=== PATIENT | male | born 1990 | race Caucasian/White ===

== ENCOUNTER 2019-09-11 08:54 | Emergency (ER) | payer BC, OTHER ==
[2019-09-11 09:08] VITALS: BP 148/96; PULSE 94; RESP 18; TEMP 98.7
[2019-09-11] MEDS ORDERED: HYDROcodone/APAP 5-325MG 1 EACH TAB PO STA (09:28)
--- NOTE | 2019-09-11 09:29 | ED ---
Lower Extremity Injury HPI - General Chief Complaint: Extremity Injury, Lower Stated Complaint: LEFT LEG INJURY, FALL DOWN 4 STAIRS Time Seen by Provider: 09/11/19 09:16 Source: patient, RN notes reviewed Mode of arrival: ambulatory Limitations: no limitations - History of Present Illness Initial Comments: This a 29-year-old male presents emergency Department chief complaint of left knee pain. Patient states that last night he was carrying some totes down the steps states that he missed a step falling down for onto a landing. This is a wooden steps. Patient states a few hours after he had swelling which is increased over nighttime. Patient states that he did have prior knee surgery from a fracture. Patient states he had screws which were removed. Patient states that the pain is on anterior surface. He denies any head injury no loss conscious. No paresthesias denies any hip pain, lower leg pain - Related Data Previous Rx's Medication Instructions Recorded Albuterol Inhaler [Ventolin Hfa 1 - 2 puff INHALATION Q6HR PRN #1 04/29/16 Inhaler] inhaler Azithromycin [Zithromax Z-pack] 250 mg PO DIRECTED #6 tab 04/29/16 Hydrocodone/Acetaminophen [[place] 1 each PO Q6HR PRN #20 tab 04/29/16 5-325] Ibuprofen [Motrin] 600 mg PO Q8HR PRN #30 tab 09/11/19 Allergies Allergy/AdvReac Type Severity Reaction Status Date / Time No Known Allergies Allergy Verified 09/11/19 09:08 Review of Systems ROS Statement: Those systems with pertinent positive or pertinent negative responses have been documented in the HPI. ROS Other: All systems not noted in ROS Statement are negative. Past Medical History Past Medical History: No Reported History History of Any Multi-Drug Resistant Organisms: None Reported Past Surgical History: Orthopedic Surgery Past Psychological History: No Psychological Hx Reported Smoking Status: Current every day smoker Past Alcohol Use History: None Reported, Occasional General Exam Limitations: no limitations General appearance: alert, in no apparent distress Head exam: Present: atraumatic, normocephalic, normal inspection Eye exam: Present: normal appearance, PERRL, EOMI. Absent: scleral icterus, conjunctival injection, periorbital swelling Respiratory exam: Present: normal lung sounds bilaterally. Absent: respiratory distress, wheezes, rales, rhonchi, stridor Cardiovascular Exam: Present: regular rate, normal rhythm, normal heart sounds. Absent: systolic murmur, diastolic murmur, rubs, gallop, clicks Extremities exam: Present: other (Left knee there is extensive swelling, effusion noted, neurovascular intact left leg with old surgical scar noted patient has limited range of motion secondary to pain and swelling, mild swelling with range of motion no appreciated laxity) Skin exam: Present: warm, dry, intact, normal color. Absent: rash Course Vital Signs 09/11/19 09:05 Temperature 98.7 F Pulse Rate 94 Respiratory 18 Rate Blood Pressure 148/96 O2 Sat by Pulse 99 Oximetry Medical Decision Making - Medical Decision Making X-ray of the left knee shows moderate joint effusion or acute fracture. I do have concerns for ligamentous injury patient was placed in knee immobilizer. Patient provided a prescription for crutches. Patient will follow-up with orthopedic physician return for any worsening symptoms. Disposition Clinical Impression: Knee effusion, left, Derangement of left knee ligament Disposition: HOME SELF-CARE Condition: Stable Instructions (If sedation given, give patient instructions): Knee Sprain (ED) Additional Instructions: Please return to the Emergency Department if symptoms worsen or any other concerns. Prescriptions: Ibuprofen [Motrin] 600 mg PO Q8HR PRN #30 tab PRN Reason: Pain Is patient prescribed a controlled substance at d/c from ED?: No Referrals: None,Stated [Primary Care Provider] - 1-2 days Valentin Brown MD [STAFF PHYSICIAN] - 1-2 days Time of Disposition: 10:23
--- NOTE | 2019-09-11 09:48 | XR ---
EXAMINATION TYPE: XR knee complete LT DATE OF EXAM: 09/11/2019 CLINICAL HISTORY: Left knee pain after fall with swelling prior surgery and fracture 4 years ago. TECHNIQUE: Three views of the left knee are obtained. COMPARISON: None. FINDINGS: There is no acute fracture/dislocation evident in left knee. The tri-compartment joint sp aces appear aligned with marginal osteophytes and slight medial compartment joint space narrowing. Th ere is a moderate to large suprapatellar joint effusion. Postsurgical changes are noted. IMPRESSION: Moderate to large suprapatellar joint effusion. There is no acute fracture or dislocatio n in the left knee. Moderate tricompartmental arthropathy.
[2019-09-11] MEDS ORDERED: ACET/COD 300 MG/30 MG STARTER PACK 6 TAB BTL PO STA (10:23)
== END 2019-09-11 10:30 | disposition home or self-care (01) ==
LOC: EC 08:54
DX: M23.92 Unspecified internal derangement of left knee (principal); M25.462 Effusion, left knee; F17.200 Nicotine dependence, unspecified, uncomplicated; Z87.81 Personal history of (healed) traumatic fracture; Z98.890 Other specified postprocedural states; W10.9XXA Fall (on) (from) unspecified stairs and steps, initial encounter
CPT/HCPCS: 99283

== ENCOUNTER → 2019-09-25 | Outpatient (CLI) | payer BC ==
--- NOTE | 2019-09-25 15:48 | MR ---
EXAMINATION TYPE: MR knee LT wo con DATE OF EXAM: 09/25/2019 COMPARISON: Plain film 09/11/2019 HISTORY: Left knee pain TECHNIQUE: Multiplanar, multisequence imaging of the left knee is performed without IV contrast. FINDINGS: MEDIAL MENISCUS: Anterior and posterior horns are intact without tear. LATERAL MENISCUS: Anterior and posterior horns are intact without tear. CRUCIATE LIGAMENTS: The anterior and posterior cruciate ligaments are intact and unremarkable. COLLATERAL LIGAMENTS: The medial collateral ligament and lateral collateral ligament complex are inta ct and unremarkable. EXTENSOR MECHANISM: Visualized quadriceps and patellar tendons are intact. EFFUSION: Suprapatellar joint effusion is present. POPLITEAL CYST: No popliteal/matias cyst. TRICOMPARTMENT SPACES: Maintained CARTILAGE: There is grade 3 to grade IV chondromalacia along the lateral femoral condyle. Some grade 2 to grade III chondromalacia suspected in the medial compartment, posterior patella shows grade iii- IV chondromalacia change. BONE MARROW SIGNAL: Probable contusion versus reactive marrow signal change present along the lateral femoral condyle with microtrabecular fractures, susceptibility artifact is present due to possible m etallic implant within the lateral femoral condyle, anterior patella OTHER: There is some fluid signal present along the lateral femoral condyle laterally, tricompartmen paula marginal spurring changes are present. Difficult to exclude a small loose body adjacent to the la teral femoral condyle measuring approximately 12 mm x 5 mm in size. IMPRESSION: Osteoarthritis and postop changes. Joint effusion. There may be bone contusion with microtrabecular f ractures or reactive marrow signal change lateral femoral condyle.
== END | disposition home or self-care (01) ==
LOC: RADMRIMAIN 06:48
PROVIDERS: ATTEND Orthopaedic Surgery
DX: M17.12 Unilateral primary osteoarthritis, left knee (principal); Z98.890 Other specified postprocedural states

== ENCOUNTER → 2019-10-13 | Outpatient (CLI) | payer BC ==
[2019-10-13 17:32] LABS: Basophils # (A) 0.2 k/uL (0-0.2); Basophils % (A) 2 %; Eosinophils # (A) 0.4 k/uL (0-0.7); Eosinophils % (A) 5 %; HCT 45.2 % (39.0-53.0); HGB 15.7 gm/dL (13.0-17.5); Lymphocytes # (A) 2.5 k/uL (1.0-4.8); Lymphocytes % (A) 32 %; MCH 31.8 pg (25.0-35.0); MCHC 34.7 g/dL (31.0-37.0); MCV 91.6 fL (80.0-100.0); Mean Platelet Volume 5.4; Monocytes # (A) 0.5 k/uL (0-1.0); Monocytes % (A) 6 %; Neutrophils # (A) 4.3 k/uL (1.3-7.7); Neutrophils % (A) 54 %; Platelet Count 311 k/uL (150-450); RBC 4.93 m/uL (4.30-5.90); RDW 12.9 % (11.5-15.5); WBC 7.9 k/uL (3.8-10.6)
== END | disposition home or self-care (01) ==
LOC: LABPAT 17:17
PROVIDERS: ATTEND Orthopaedic Surgery
DX: Z01.812 Encounter for preprocedural laboratory examination (principal); M23.92 Unspecified internal derangement of left knee
CPT/HCPCS: 85025

== ENCOUNTER 2021-08-02 20:52 | Emergency (ER) | payer BC ==
[2021-08-02 20:57] VITALS: BP 141/80; PULSE 76; RESP 18; TEMP 98
[2021-08-02] MEDS ORDERED: FLUORESCEIN STRIPS 1 MG STRIP LEFT EYE ONE (20:58)
[2021-08-02] MEDS ORDERED: PROPARACAINE 0.5% OPHTH DROPS 15 ML BTL LEFT EYE STA (20:58)
[2021-08-02] MEDS ORDERED: TOBRAMYCIN 0.3% OPHTH DROPS 5 ML BTL LEFT EYE STA (21:14)
--- NOTE | 2021-08-02 21:15 | ED ---
Eye Problem HPI - General Chief complaint: Eye Problems Stated complaint: steel shavings in L eye Time Seen by Provider: 08/02/21 20:58 Source: patient Mode of arrival: ambulatory Limitations: no limitations - History of Present Illness Initial comments: 31 year-old male patient presents to the emergency department today for evaluation of left eye foreign body. Patient states he was grinding metal and felt something go into his eye. States that he tried to flush it and get it out with Q-tip but was unsuccessful. Patient denies any bleeding or drainage from the eye. Denies blurred or double vision. Last tetanus vaccine was 3-4 years ago. Denies any other injuries or concerns. - Related Data Home Medications Medication Instructions Recorded Confirmed Acetaminophen Tab [Tylenol Tab] 500 - 1,000 mg PO Q6HR PRN 10/19/19 Allergies Allergy/AdvReac Type Severity Reaction Status Date / Time No Known Allergies Allergy Verified 08/02/21 20:55 Review of Systems ROS Statement: Those systems with pertinent positive or pertinent negative responses have been documented in the HPI. ROS Other: All systems not noted in ROS Statement are negative. Past Medical History Past Medical History: Pneumonia Additional Past Medical History / Comment(s): left leg injury History of Any Multi-Drug Resistant Organisms: None Reported Past Surgical History: Orthopedic Surgery Additional Past Surgical History / Comment(s): arthroscopy rt knee,lt knee 2 screws placed-later removed Past Anesthesia/Blood Transfusion Reactions: No Reported Reaction Additional Past Anesthesia/Blood Transfusion Reaction / Comment(s): no hx blood transfusion Past Psychological History: No Psychological Hx Reported Smoking Status: Current every day smoker Past Alcohol Use History: Occasional Past Drug Use History: None Reported General Exam Limitations: no limitations General appearance: alert, in no apparent distress, other (This is a well developed, well nourished adult male patient in no acute distress. V/S upon presentation showed Temp 98.0, pulse 76, respirations 18, BP 141/80, Pulse ox 96. ) Eye exam: Present: PERRL, EOMI, other (Left eye foreign body noted to 3 O'Clock over the limbus region. Fluorescein stain with Wood's lamp examination was p erformed and showed no evidence for any other injury. Negative Christal sign. Eversion of lids showed no evidence or other foreign body.). Absent: scleral icterus, conjunctival injection, periorbital swelling Respiratory exam: Present: normal lung sounds bilaterally. Absent: respiratory distress, wheezes, rales, rhonchi, stridor Cardiovascular Exam: Present: regular rate, normal rhythm, normal heart sounds. Absent: systolic murmur, diastolic murmur, rubs, gallop, clicks Neurological exam: Present: alert, oriented X3, CN II-XII intact Psychiatric exam: Present: normal affect, normal mood Skin exam: Present: warm, dry, intact, normal color. Absent: rash Course Vital Signs 08/02/21 20:55 Temperature 98 F Pulse Rate 76 Respiratory 18 Rate Blood Pressure 141/80 O2 Sat by Pulse 96 Oximetry Procedures - Forgein Body Removal Eye Site: Left Location in eye(s): 3 o'clock Anesthetic Used: Proparacaine Eye Exam Technique: Murray Lamp, Fluorescein Foreign Body Suspected: Metal Forgein Body Removal Technique: [place]brush Remaining Debris: No Patient Tolerated: no complications Medical Decision Making - Medical Decision Making 31-year-old male patient presents to the emergency department today for evaluation of left eye foreign body. Physical examination did reveal a metallic foreign body to the cornea at around 3:00 near the limbus region. I did remove the foreign body using the lindsay brush. Piece came out completely with no debris. He'll be discharged with tobramycin eye antibiotic drops. Instructed to follow-up with ophthalmology symptoms don't improve over the next 1-2 days. Return parameters were discussed in detail. Patient verbalizes understanding and agree with this plan. Disposition Clinical Impression: Foreign body of left eye Disposition: HOME SELF-CARE Condition: Good Instructions (If sedation given, give patient instructions): Eye Foreign Body (ED) Additional Instructions: Use antibiotic drops 1 drop to the left eye 4 times a day lower leg. Follow-up with ophthalmology if necessary. Follow up through primary care physician for recheck in 1-2 days. Return for any new, worsening, or concerning symptoms. Is patient prescribed a controlled substance at d/c from ED?: No Referrals: Tomas Welch MD [STAFF PHYSICIAN] - 1-2 days Time of Disposition: 21:15
== END 2021-08-02 21:37 | disposition home or self-care (01) ==
LOC: EC 20:52
DX: T15.02XA Foreign body in cornea, left eye, initial encounter (principal); F17.200 Nicotine dependence, unspecified, uncomplicated; Z72.89 Other problems related to lifestyle
CPT/HCPCS: 65220; 99283

== ENCOUNTER 2021-08-12 20:33 | Emergency (ER) | payer BC ==
[2021-08-12 20:37] VITALS: PULSE 68
--- NOTE | 2021-08-12 21:18 | XR ---
EXAMINATION TYPE: XR chest 2V DATE OF EXAM: 08/12/2021 COMPARISON: 04/29/2016 HISTORY: Cough TECHNIQUE: FINDINGS: Heart and mediastinum are normal. Lungs are clear of consolidation. There is slight increas ed interstitial markings. There are no hilar masses. There is no pleural effusion. Bony thorax is int act. IMPRESSION: Slight increased interstitial markings. No pulmonary consolidation or heart failure.
--- NOTE | 2021-08-12 21:18 | ED ---
URI HPI - General Chief Complaint: Upper Respiratory Infection Stated Complaint: Cough Time Seen by Provider: 08/12/21 20:43 Source: patient, RN notes reviewed Mode of arrival: ambulatory Limitations: no limitations - History of Present Illness Initial Comments: Patient is a 31-year-old male that presents to emergency department complaining of upper respiratory tract symptoms for the past week to 10 days. He notes that she does have postnasal drip and a cough. Notes that when he coughs his ribs are sore. Patient denied any fevers. He notes he has not been swab for Covid in a while. He was otherwise a well-appearing healthy 31-year-old male in no apparent distress or pain. He noted he came in to get evaluated for possible Covid. He denied any chest pain shortness of breath headache nausea vomiting diarrhea constipation fever fatigue chills. - Related Data Home Medications Medication Instructions Recorded Confirmed Acetaminophen Tab [Tylenol Tab] 500 - 1,000 mg PO Q6HR PRN 10/19/19 Allergies Allergy/AdvReac Type Severity Reaction Status Date / Time No Known Allergies Allergy Verified 08/12/21 20:37 Review of Systems ROS Statement: Those systems with pertinent positive or pertinent negative responses have been documented in the HPI. ROS Other: All systems not noted in ROS Statement are negative. Past Medical History Past Medical History: Pneumonia Additional Past Medical History / Comment(s): left leg injury History of Any Multi-Drug Resistant Organisms: None Reported Past Surgical History: Orthopedic Surgery Additional Past Surgical History / Comment(s): arthroscopy rt knee,lt knee 2 screws placed-later removed Past Anesthesia/Blood Transfusion Reactions: No Reported Reaction Additional Past Anesthesia/Blood Transfusion Reaction / Comment(s): no hx blood transfusion Past Psychological History: No Psychological Hx Reported Smoking Status: Current every day smoker Past Alcohol Use History: Occasional Past Drug Use History: None Reported General Exam Limitations: no limitations General appearance: alert, in no apparent distress Head exam: Present: atraumatic, normocephalic, normal inspection Eye exam: Present: normal appearance, PERRL, EOMI. Absent: scleral icterus, conjunctival injection, periorbital swelling ENT exam: Present: normal exam, mucous membranes moist. Absent: normal oropharynx (Erythematous most likely from cough) Neck exam: Present: normal inspection Respiratory exam: Present: normal lung sounds bilaterally. Absent: respiratory distress, wheezes, rales, rhonchi, stridor Cardiovascular Exam: Present: regular rate, normal rhythm, normal heart sounds. Absent: systolic murmur, diastolic murmur, rubs, gallop, clicks Extremities exam: Present: normal inspection, full ROM, normal capillary refill. Absent: tenderness, pedal edema, joint swelling, calf tenderness Neurological exam: Present: alert, oriented X3 Psychiatric exam: Present: normal affect, normal mood Skin exam: Present: warm, dry, intact, normal color. Absent: rash Course Vital Signs 08/12/21 08/12/21 20:34 21:03 Temperature 98.3 F Pulse Rate 68 Respiratory 20 24 Rate Blood Pressure 155/101 O2 Sat by Pulse 98 Oximetry Medical Decision Making - Medical Decision Making 31-year-old male complaining of upper respiratory tract symptoms for the past 7- 10 days. Covid test, chest x-ray ordered. Covid test negative. Chest x-ray shows slight increased interstitial markings. Vitals are stable, oh fever, oxygen saturation high 90s on room air. Case discussed with Dr. Busch, patient discharge home. - Lab Data Lab Results 08/12/21 Range/Units 21:05 Coronavirus (PCR) Not Detected (Not Detectd) - Radiology Data Radiology results: report reviewed, image reviewed Chest x-ray: Slight increased interstitial markings. No pulmonary consolidation heart failure. Disposition Clinical Impression: Upper respiratory tract infection Disposition: HOME SELF-CARE Condition: Stable Instructions (If sedation given, give patient instructions): Upper Respiratory Infection (ED) Additional Instructions: Please return to the Emergency Department if symptoms worsen or any other concerns. Follow-up with primary care in the next 1-2 days. Take Tylenol and Motrin as needed for any fevers aches or pains. Take [id number] cough medicine as needed. Is patient prescribed a controlled substance at d/c from ED?: No Referrals: None,Stated [Primary Care Provider] - 1-2 days Time of Disposition: 21:38
[2021-08-12 22:02] VITALS: BP 143/92; RESP 20; TEMP 97.6
== END 2021-08-12 22:02 | disposition home or self-care (01) ==
LOC: EC 20:33
DX: J06.9 Acute upper respiratory infection, unspecified (principal); F17.200 Nicotine dependence, unspecified, uncomplicated; Z20.822 Contact with and (suspected) exposure to COVID-19
CPT/HCPCS: 71046; 87635; 99284